=== PATIENT | male | born 1950 | race Caucasian/White ===

== ENCOUNTER 2022-10-02 02:10 | Emergency (ER) | payer OTHER, SELFPAY ==
--- NOTE | ~2022-10-02 | CT_ITS ---
CT ANGIOGRAM NECK WITH CONTRAST CT ANGIOGRAM BRAIN WITH CONTRAST CLINICAL INFORMATION: Expressive aphasia. COMPARISON: CTA head and neck June 08, 2019. Noncontrast head CT performed earlier the same day. TECHNIQUE: Test bolus sequences followed by intravenous administration 80 mL of Omnipaque 350. Helical imaging was performed in the axial plane from the thoracic inlet to the skull vertex. Delayed postcontrast imaging of the head was also performed. The data was processed at the angiography technologist workstation for generation of MIP sequences. Angled MIPs and volume rendered reformatted images were also generated at an offline 3D workstation under concurrent supervision. Stenoses are assessed in accordance with NASCET criteria unless otherwise indicated. This CT examination was performed using dose optimization techniques as appropriate, variously including the following: *Automated exposure control *Adjustment of mA and/or kV according to patient size (this includes techniques or standardized protocols for targeted exams where dose is matched to indication/reason for exam; i.e. extremities or head) *Use of iterative reconstruction technique FINDINGS: BRAIN: No acute intracranial findings. Redemonstration of a large chronic infarct involving nearly the entire left MCA territory with associated volume loss and ex vacuo dilatation of the left lateral ventricle as well as chronic left-sided wallerian degeneration. There is a chronic infarct within the left cerebellum and there is background chronic microangiopathy.[There is no intracranial hemorrhage, hydrocephalus, extra-axial surface collection, midline shift, or other herniation pattern. [place] to white matter differentiation is diffusely maintained without evidence of an evolved acute territorial infarct. The basilar cisterns are preserved. No significant soft tissue abnormality. No acute osseous abnormality. The paranasal sinuses and the mastoid air cells are well aerated.] CERVICAL SOFT TISSUES AND LUNG APICES: There is advanced cervical spondylosis. No significant soft tissue findings within the neck. The imaged upper lungs are clear. NECK CTA: [There is a classic 3 vessel configuration of the aortic arch. Proximal arch vessels are non-stenotic. The right vertebral artery is dominant. No significant ostial stenosis is visualized on either side. Both vertebral arteries are widely patent throughout their extracranial cervical course. Atherosclerotic disease results in a 50% stenosis of the proximal right internal carotid artery. 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 The left internal carotid artery remains occluded through the reconstituted communicating segment, also unchanged in comparison to the previous exam. BRAIN CTA: [Decreased caliber of the left M1 middle cerebral artery and its distal branches, not unexpected given the extent of chronic left MCA territory infarction. Timing of the contrast bolus allows assessment of the major dural venous sinuses, which all opacify normally] CT/CT angio head neck stroke IMPRESSION: - No acute intracranial findings. Redemonstration of a large chronic infarct involving nearly the entire left MCA territory with associated volume loss and ex vacuo dilatation of the left lateral ventricle as well as chronic left-sided wallerian degeneration. There is a chronic infarct within the left cerebellum and there is background chronic microangiopathy. MRI would be more sensitive in assessing for any superimposed acute ischemic change. 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 The left internal carotid artery remains occluded through the reconstituted communicating segment, also unchanged in comparison to the previous exam. Patulous left ICA bulb is stable. - Decreased caliber of the left M1 middle cerebral artery and its distal branches, not unexpected given the extent of chronic left MCA territory infarction. - Atherosclerotic disease results in a 50% stenosis of the proximal right internal carotid artery. - There is advanced cervical spondylosis. The findings in this report were communicated with Dr. Cardoso by Dr. Campuzano at 2:55 AM on October 02, 2022.
--- NOTE | ~2022-10-02 | CT_ITS ---
EXAMINATION: CT HEAD WITHOUT CONTRAST CLINICAL INFORMATION: Expressive aphasia COMPARISON: None TECHNIQUE: Contiguous axial imaging was performed from the skull base to vertex without intravenous administration of contrast. This CT examination was performed using dose optimization techniques as appropriate, variously including the following: *Automated exposure control *Adjustment of mA and/or kV according to patient size (this includes techniques or standardized protocols for targeted exams where dose is matched to indication/reason for exam; i.e. extremities or head) *Use of iterative reconstruction technique DLP: 770 mGy-cm FINDINGS: There is an extensive region of hypoattenuation in the left MCA territory favoring encephalomalacia from chronic infarct. There is mild ex vacuo dilatation of the left lateral ventricle. No acute intracranial hemorrhage is seen. There is no definite acute territorial infarction. Mild volume loss is noted. No abnormal mass-effect or midline shift is seen. [place] to white matter differentiation is otherwise preserved. No extra-axial fluid collections are identified. The osseous structures and soft tissues are normal. Trace mucosal thickening of the right maxillary sinus. The mastoid air cells are well-aerated. CT/CT head for stroke IMPRESSION: No acute intracranial hemorrhage. Extensive region of hypoattenuation in the left MCA territory favoring encephalomalacia from chronic infarct. If there is clinical concern for superimposed acute infarct, this would be better assessed with MRI. This stroke protocol result was discussed with Dr. Dumont on 10/02/2022 2:35 AM.
[2022-10-02 02:10] VITALS: BP 109/63; PULSE 67; RESP 20; TEMP 36.6; O2SAT 100
--- NOTE | 2022-10-02 03:23 | ECG_ITS ---
Test Reason : stroke Blood Pressure : / mmHG Vent. Rate : 067 BPM Atrial Rate : 067 BPM P-R Int : 162 ms QRS Dur : 080 ms QT Int : 406 ms P-R-T Axes : 035 -26 025 degrees QTc Int : 429 ms Normal sinus rhythm Minimal voltage criteria for LVH, may be normal variant ( R in aVL ) Borderline ECG No previous ECGs available Referred By: Dennis Ariza Electronically Signed By:ERIKA BOYER
[2022-10-02 05:16] VITALS: BP 145/78; PULSE 76; RESP 26; TEMP 36.6; O2SAT 95; BMI 31.6
[2022-10-02] MEDS: iohexoL 350 MG/ML 100 ML INFUS..BTL 70 ML IV (05:31)
--- NOTE | 2022-10-02 05:39 | PC.NURSE ---
Pt arrived during downtime at 02:10a, on 10/02/2022.
[2022-10-02 06:07] VITALS: BP 116/66; PULSE 72; RESP 13; TEMP 36.6; O2SAT 92
[2022-10-02 06:07] LABS: Potassium 4.5 mmol/L (3.3-5.1); Sodium 139 mmol/L (135-145); Troponin-I High Sensitivity 5.3 ng/L (<3.5-35.0)
[2022-10-02 06:08] LABS: Anion Gap 15 (12-20); Aspartate Amino Transferase 49 U/L (5-37); Bilirubin Total 0.3 mg/dL (0.0-1.0); Blood Urea Nitrogen 8 mg/dL (9-16); Carbon Dioxide 25 mmol/L (22-29); Chloride 104 mmol/L (96-108); Creatinine Clr Calc Pharmacy 82.7; Estimated Glomerular Filt Rate > 60; Glucose Random 172 mg/dL (60-115)
[2022-10-02 06:09] LABS: Alanine Aminotransferase 42 U/L (0-40); Albumin Level 3.5 g/dL (3.5-5.0); Alkaline Phosphatase 77 U/L (39-117); Total Protein 6.9 g/dL (6.5-8.0)
--- NOTE | 2022-10-02 06:12 | MHC.EDTECH ---
PT given pericare. PT setup on [employer] system. Pt given warm blanket and call camejo in reach
[2022-10-02 06:20] LABS: INTERNATIONAL NORM RATIO 1.2 (0.9-1.1); Prothrombin Time 13.3 SEC (10.0-13.1)
[2022-10-02 06:21] LABS: Basophils Absolute Auto 0.1 X10*3/uL (0.0-0.2); Basophils Percent Auto 0.9 % (0-2); Eosinophils Absolute Auto 0.5 X10*3/uL (0.0-0.4); Hematocrit 43.7 % (42.0-52.0); Hemoglobin 14.1 g/dl (14.0-18.0); Imm Gran Abs Auto 0.08 X10*3/uL (0.00-0.03); Imm Gran Pct Auto 0.8 % (0.0-0.4); Lymphocytes Absolute Auto 2.4 X10*3/uL (1.2-4.9); Lymphocytes Percent Auto 23.7 % (20-40); MANUAL DIFF FLAG NO; Mean Corpuscular HGB Conc 32.3 g/dl (31.0-36.0); Mean Corpuscular Hemoglobin 27.8 pg (27.0-33.0); Mean Platelet Volume 10.5 fL (9.4-12.4); Monocytes Absolute Auto 0.8 X10*3/uL (0.1-1.2); Neutrophils Absolute Auto 6.2 x10*3/uL (2.0-8.3); Neutrophils Percent Auto 61.6 % (45-73); Platelet Count 311 X10*3/uL (160-400); Red Blood Count 5.08 X10*6/uL (4.60-5.80); Red Cell Distribution Width 15.4 % (11.0-16.0); White Blood Count 10.1 X10*3/uL (4.8-10.8)
--- NOTE | 2022-10-02 06:41 | ED_ITS ---
HPI - Neuro Symptoms/Deficit General Chief Complaint: Stroke Time Seen by Provider: 10/02/22 05:50 History of Present Illness HPI Narrative: Patient from SNF with history of left MCA dense stroke bed-bound DNR DNI sent from retirement for change in mental status. patient able to follow objects from right side to left midline but not able to follow midline to left side at his baseline , he usually alert but per nursing at this time he was very delayed and slow in responding patient received Percocet at 00:20 no vomiting no fever no cough Related Data Allergies Allergy/AdvReac Type Severity Reaction Status Date / Time No Known Allergies Allergy Unverified 04/26/20 19:46 [No Known Allergies*] Review of Systems Review of Systems: Yes Unobtainable due to mental condition [facility] Past Medical History Medical History (Updated 10/02/22 @ 07:06 by Dennis Ariza MD) Aphasia Autonomic dysreflexia COPD (chronic obstructive pulmonary disease) CVA (cerebral vascular accident) Diabetes mellitus Kidney stone Right hemiplegia Social History Social History Advance Directives: No Physical Exam Vital Signs: Vital Signs: Last Vital Signs Temp 98 F 10/02/22 06:07 Pulse 72 10/02/22 06:07 Resp 13 10/02/22 06:07 BP 116/66 10/02/22 06:07 Pulse Ox 92 10/02/22 06:07 O2 Del Method 10/02/22 06:07 BMI result Body Mass Index 31.6 Appearance: Alert and awake No acute distress. Eyes: PERRLA, No Nystagmus dense right hemineglect and hemianopsia ENT: Pharynx normal. Oral Mucosa moist Neck: Normal inspection. Neck supple. CVS: Normal heart rate and rhythm. Pulses normal. Respiratory: No respiratory distress. Equal air entry bilateral, no wheezing/rales/rhonchi Abdomen: Soft and nontender. Bowel sounds are present, no mass palpable, no CVA tenderness Skin: Skin warm and dry. Normal skin color. Normal skin turgor. Extremities: No lower extremity edema. No calf tenderness Neuro: Alert and awake with dense right hemiparesis slow verbal response 4+ strength left upper and lower extremity Medications Administered Discontinued Medications Generic Name Dose Route Start Last Admin Trade Name Freq PRN Reason Stop Dose Admin Iohexol 70 ml 02/23/23 02:20 10/02/22 05:31 Iohexol 350 Mg/Ml 100 Ml Infus..Btl IV 10/02/22 02: 70 ml ONCE ONE Administration Medical Decision Making Medical Decision Making [facility] Narrative: 07:00 Patient has significant old left MCA stroke with dense hemiparesis came for slow response without significant weakness on the left side. CT head was negative for acute CT a head and neck with diffuse changes seems to be chronic patient re-evaluated at 07:00 back to baseline able to move his left extremity and lower extremity has dense right hemiparesis with right hemianopia and hemineglect. Labs are stable UA showed significant leuko Estrase and leuk ocytosis will give 1 g of IV Rocephin will discharge patient back to retirement on Ceftin UTI likely the cause for change in sensorium and weakness Differential Diagnosis CVA/metabolic encephalopathy/infection Lab Data [facility] Lab Attestation statement: I reviewed the patient's lab results. 10/02/22 03:46 10/02/22 03:46 Labs: Lab Results 10/02/22 10/02/22 10/02/22 Range/Units 02:21 02:38 03:46 WBC (4.8-10.8) X10*3/uL RBC (4.60-5.80) X10*6/uL Hgb (14.0-18.0) g/dl Hct (42.0-52.0) % MCV (80.0-98.0) fL MCH (27.0-33.0) pg MCHC (31.0-36.0) g/dl RDW (11.0-16.0) % Plt Count (160-400) X10*3/uL MPV (9.4-12.4) fL Immature Gran % (Auto) (0.0-0.4) % Neut % (Auto) (45-73) % Lymph % (Auto) (20-40) % [place] % (Auto) (2-11) % Eos % (Auto) (0-4) % Baso % (Auto) (0-2) % Lymph # (Auto) (1.2-4.9) X10*3/uL [place] # (Auto) (0.1-1.2) X10*3/uL Eos # (Auto) (0.0-0.4) X10*3/uL Baso # (Auto) (0.0-0.2) X10*3/uL Abs Immat Gran (auto) (0.00-0.03) X10*3/uL Absolute Neuts (auto) (2.0-8.3) x10*3/uL Absolute Nucleated RBC (0.0-0.012) X10*3/uL Nucleated RBC % (auto) (0.0-0.2) /100WBC PT (10.0-13.1) SEC Whole Blood PT 12.4 (11.1-13.5) sec INR (0.9-1.1) Whole Blood INR 1.0 (0.9-1.1) APTT (26.0-36.4) SEC Sodium 139 (135-145) mmol/L Potassium 4.5 (3.3-5.1) mmol/L Chloride 104 (96-108) mmol/L Carbon Dioxide 25 (22-29) mmol/L Anion Gap 15 (12-20) BUN 8 L (9-16) mg/dL Creatinine 1.00 (0.5-1.4) mg/dL Estim Creat Clear Calc 82.7 Estimated GFR > 60 POC Glucose 188 H (60-115) mg/dL Random Glucose 172 H (60-115) mg/dL Calcium 9.0 (8.4-10.2) mg/dL Total Bilirubin 0.3 (0.0-1.0) mg/dL AST 49 H (5-37) U/L ALT 42 H (0-40) U/L Alkaline Phosphatase 77 (39-117) U/L Troponin I High Sens (<3.5-35.0) ng/L Total Protein 6.9 (6.5-8.0) g/dL Albumin 3.5 (3.5-5.0) g/dL Urine Color Urine Appearance Urine pH (5.0-9.0) Ur Specific [place] (1.005-1.025) Urine Protein (Neg-Trace) mg/dL Urine Glucose (UA) (Negative) mg/dL Urine Ketones (Negative) mg/dL Urine Blood (Negative) Urine Nitrite (Negative) Ur Leukocyte Esterase (Negative) Urine RBC (0-2) /HPF Urine WBC (0-5) /HPF Ur Squamous Epith Cells (0-2) /HPF Urine Bacteria (None Seen) Hyaline Casts (0-2) /LPF 10/02/22 10/02/22 10/02/22 Range/Units 03:46 03:46 03:46 WBC 10.1 (4.8-10.8) X10*3/uL RBC 5.08 (4.60-5.80) X10*6/uL Hgb 14.1 (14.0-18.0) g/dl Hct 43.7 (42.0-52.0) % MCV 86.0 (80.0-98.0) fL MCH 27.8 (27.0-33.0) pg MCHC 32.3 (31.0-36.0) g/dl RDW 15.4 (11.0-16.0) % Plt Count 311 (160-400) X10*3/uL MPV 10.5 (9.4-12.4) fL Immature Gran % (Auto) 0.8 H (0.0-0.4) % Neut % (Auto) 61.6 (45-73) % Lymph % (Auto) 23.7 (20-40) % [place] % (Auto) 8.0 (2-11) % Eos % (Auto) 5.0 H (0-4) % Baso % (Auto) 0.9 (0-2) % Lymph # (Auto) 2.4 (1.2-4.9) X10*3/uL [place] # (Auto) 0.8 (0.1-1.2) X10*3/uL Eos # (Auto) 0.5 H (0.0-0.4) X10*3/uL Baso # (Auto) 0.1 (0.0-0.2) X10*3/uL Abs Immat Gran (auto) 0.08 H (0.00-0.03) X10*3/uL Absolute Neuts (auto) 6.2 (2.0-8.3) x10*3/uL Absolute Nucleated RBC 0.000 (0.0-0.012) X10*3/uL Nucleated RBC % (auto) 0.0 (0.0-0.2) /100WBC PT 13.3 H (10.0-13.1) SEC Whole Blood PT (11.1-13.5) sec INR 1.2 H (0.9-1.1) Whole Blood INR (0.9-1.1) APTT 33.0 (26.0-36.4) SEC Sodium (135-145) mmol/L Potassium (3.3-5.1) mmol/L Chloride (96-108) mmol/L Carbon Dioxide (22-29) mmol/L Anion Gap (12-20) BUN (9-16) mg/dL Creatinine (0.5-1.4) mg/dL Estim Creat Clear Calc Estimated GFR POC Glucose (60-115) mg/dL Random Glucose (60-115) mg/dL Calcium (8.4-10.2) mg/dL Total Bilirubin (0.0-1.0) mg/dL AST (5-37) U/L ALT (0-40) U/L Alkaline Phosphatase (39-117) U/L Troponin I High Sens 5.3 (<3.5-35.0) ng/L Total Protein (6.5-8.0) g/dL Albumin (3.5-5.0) g/dL Urine Color Urine Appearance Urine pH (5.0-9.0) Ur Specific [place] (1.005-1.025) Urine Protein (Neg-Trace) mg/dL Urine Glucose (UA) (Negative) mg/dL Urine Ketones (Negative) mg/dL Urine Blood (Negative) Urine Nitrite (Negative) Ur Leukocyte Esterase (Negative) Urine RBC (0-2) /HPF Urine WBC (0-5) /HPF Ur Squamous Epith Cells (0-2) /HPF Urine Bacteria (None Seen) Hyaline Casts (0-2) /LPF 10/02/22 Range/Units 07:24 WBC (4.8-10.8) X10*3/uL RBC (4.60-5.80) X10*6/uL Hgb (14.0-18.0) g/dl Hct (42.0-52.0) % MCV (80.0-98.0) fL MCH (27.0-33.0) pg MCHC (31.0-36.0) g/dl RDW (11.0-16.0) % Plt Count (160-400) X10*3/uL MPV (9.4-12.4) fL Immature Gran % (Auto) (0.0-0.4) % Neut % (Auto) (45-73) % Lymph % (Auto) (20-40) % [place] % (Auto) (2-11) % Eos % (Auto) (0-4) % Baso % (Auto) (0-2) % Lymph # (Auto) (1.2-4.9) X10*3/uL [place] # (Auto) (0.1-1.2) X10*3/uL Eos # (Auto) (0.0-0.4) X10*3/uL Baso # (Auto) (0.0-0.2) X10*3/uL Abs Immat Gran (auto) (0.00-0.03) X10*3/uL Absolute Neuts (auto) (2.0-8.3) x10*3/uL Absolute Nucleated RBC (0.0-0.012) X10*3/uL Nucleated RBC % (auto) (0.0-0.2) /100WBC PT (10.0-13.1) SEC Whole Blood PT (11.1-13.5) sec INR (0.9-1.1) Whole Blood INR (0.9-1.1) APTT (26.0-36.4) SEC Sodium (135-145) mmol/L Potassium (3.3-5.1) mmol/L Chloride (96-108) mmol/L Carbon Dioxide (22-29) mmol/L Anion Gap (12-20) BUN (9-16) mg/dL Creatinine (0.5-1.4) mg/dL Estim Creat Clear Calc Estimated GFR POC Glucose (60-115) mg/dL Random Glucose (60-115) mg/dL Calcium (8.4-10.2) mg/dL Total Bilirubin (0.0-1.0) mg/dL AST (5-37) U/L ALT (0-40) U/L Alkaline Phosphatase (39-117) U/L Troponin I High Sens (<3.5-35.0) ng/L Total Protein (6.5-8.0) g/dL Albumin (3.5-5.0) g/dL Urine Color Yellow Urine Appearance Turbid Urine pH 5.5 (5.0-9.0) Ur Specific [place] >= 1.030 H (1.005-1.025) Urine Protein 30 (1+) H (Neg-Trace) mg/dL Urine Glucose (UA) Negative (Negative) mg/dL Urine Ketones Negative (Negative) mg/dL Urine Blood Small (1+) H (Negative) Urine Nitrite Positive H (Negative) Ur Leukocyte Esterase Moderate (2+) H (Negative) Urine RBC >20 H (0-2) /HPF Urine WBC >50 H (0-5) /HPF Ur Squamous Epith Cells 0-2 (0-2) /HPF Urine Bacteria 4+ (None Seen) Hyaline Casts 0-2 (0-2) /LPF Independent Interpretation I performed an independent interpretation of an: EKG Interpretation: Normal sinus rhythm LVH normal intervals no acute restricted in no acute i ischemia Discharge Plan Discharge Clinical Impression: Acute alteration in mental status Patient Disposition: Xfer SNF
[2022-10-02 06:52] LABS: Prothrombin Time Whole Bld POC 12.4 sec (11.1-13.5)
[2022-10-02 07:03] LABS: Glucose, Whole Blood 188 mg/dL (60-115)
[2022-10-02 07:37] LABS: Appearance Urine Turbid; Color Urine Yellow; Glucose Urine UA Negative (Negative); Leukocyte Esterase Urine Moderate (2+) (Negative); Nitrite Urine Positive (Negative); PH 5.5 (5.0-9.0); Specific Gravity - Urine >= 1.030 (1.005-1.025); UMIC TRIGGER UACC YES; Urine Blood Small (1+) (Negative); Urine Ketones Negative (Negative); Urine Protein 30 (1+) mg/dL (Neg-Trace)
[2022-10-02 07:51] LABS: Bacteria Urine 4+ (None Seen); Hyaline Casts Urine 0-2 /LPF (0-2); RBC Urine >20 /HPF (0-2); Squamous Epithelial Cell Urine 0-2 /HPF (0-2); UACC Culture Trigger YES; WBC Urine >50 /HPF (0-5)
[2022-10-02] MEDS: cefTRIAXone sodium 1 GM in 0.9 % Sodium Chloride 50 ML IV (08:21)
--- NOTE | 2022-10-02 09:17 | PC.NURSE ---
Antibiotics infused for UTI, pt to be discharged back to facility via EMS.
[2022-10-02 10:03] VITALS: BP 111/44; PULSE 68; RESP 20; O2SAT 94
== END 2022-10-02 10:12 ==
PROVIDERS: Emergency Provider Internal Medicine; PCP Family Medicine Geriatric Medicine
DX: R41.82 Altered mental status, unspecified (principal); N39.0 Urinary tract infection, site not specified; B96.20 Unspecified Escherichia coli [E. coli] as the cause of diseases classified elsewhere; E11.9 Type 2 diabetes mellitus without complications; I69.351 Hemiplegia and hemiparesis following cerebral infarction affecting right dominant side; G90.4 Autonomic dysreflexia; R47.01 Aphasia
CPT/HCPCS: 36415; 70450; 70496; 70498; 80053; 81001; 82947; 84484; 85025; 85610; 85730; 87086; 87088; 87186; 93005; 96365; 99284; 99285; J0696; Q9967